=== PATIENT | female | born 1990 | race Two or more races ===

== ENCOUNTER 2020-03-22 01:40 | Observation (INO) | payer MEDICAID, OTHER ==
[~2020-03-22] VITALS: Ht 157.5 cm; Wt 95.3 kg
== END 2020-03-22 03:58 | disposition home or self-care (01) ==
LOC: LDRP 01:40
PROVIDERS: ADMIT Obstetrics & Gynecology; ATTEND Obstetrics & Gynecology
DX: O62.9 Abnormality of forces of labor, unspecified (principal); O99.891 Other specified diseases and conditions complicating pregnancy; M54.9 Dorsalgia, unspecified; Z3A.38 38 weeks gestation of pregnancy
CPT/HCPCS: 59025; 81002; 84112; G0378; Q0114

== ENCOUNTER 2020-04-01 10:10 | Observation (INO) | payer OTHER ==
[2020-04-01] MEDS ORDERED: PREN-96 PO (13:12)
== END 2020-04-01 12:50 | disposition home or self-care (01) ==
LOC: LDRP 10:10 → UNDOADMOB 10:10 → UNDODISOB 12:50
PROVIDERS: ADMIT Obstetrics & Gynecology; ATTEND Obstetrics & Gynecology
DX: O36.8130 Decreased fetal movements, third trimester, not applicable or unspecified (principal); O46.93 Antepartum hemorrhage, unspecified, third trimester; O62.9 Abnormality of forces of labor, unspecified; Z87.891 Personal history of nicotine dependence; Z3A.39 39 weeks gestation of pregnancy
CPT/HCPCS: 76818; G0378

== ENCOUNTER 2020-04-01 16:00 | Inpatient (IN) | payer OTHER ==
[~2020-04-01] VITALS: Ht 157.5 cm; Wt 97.5 kg
[~2020-04-01 16:00] MED LIST: PREN-96 PO
[2020-04-01] MEDS ORDERED: LACT. RINGERS/OXYTOCIN 20UNITS 1,000 ML IV ONE (16:30)
[2020-04-01] MEDS ORDERED: WITCH HAZEL-GLYCERIN PAD TOP PRN (16:30)
[2020-04-01] MEDS ORDERED: LACTATED RINGER'S 1,000 ML IV SCH (16:30)
[2020-04-01] MEDS ORDERED: DERMOPLAST 60ML BOTTLE TOP PRN (16:30)
[2020-04-01] MEDS ORDERED: PHISODERM TOP SOLN 240ML BTL TOP PRN (16:30)
[2020-04-01] MEDS ORDERED: PENICILLIN G POT 5MIL/D5 50ML 50 ML IV ONE (16:30)
[2020-04-01] MEDS ORDERED: LIDOCAINE 2%HCL (LOCAL ANESTH.) INJ 20ML MDV IJ ONE (16:30)
[2020-04-01] MEDS ORDERED: BUTORPHANOL TARTRATE 2 MG/1 ML VIAL IM PRN (17:00)
[2020-04-01 17:07] LABS: Eosinophils # (auto) 0 10 ^3/uL (0-0.8); Eosinophils % (auto) 0.3 % (0.0-7.0); Hemoglobin 12.4 g/dL (12.2-16.2); Lymphocytes # (auto) 1.3 10 ^3/uL (0.4-5.4); Neutrophils # (auto) 8.9 10 ^3/uL (1.6-8.6)
[2020-04-01 17:08] LABS: Basophils # (auto) 0 10 ^3/uL (0-0.2); Basophils % (auto) 0.4 % (0.0-2.0); Hematocrit 37.1 % (36.0-46.0); Lymphocytes % (auto) 11.9 % (10.0-50.0); Mean Corpuscular Hemoglobin 26.4 pg (28.0-32.0); Mean Corpuscular Hgb Conc. 33.5 g/dL (32.0-36.0); Mean Corpuscular Volume 78.9 fL (80.0-100.0); Monocytes # (auto) 0.7 10 ^3/uL (0-1.3); Monocytes % (auto) 6.2 % (0.0-12.0); Neutrophils % (auto) 81.2 % (37.0-80.0); Nucleated Red Blood Cells % 0.1 %; Platelet Count (auto) 161 10^3/uL (140-450); Red Blood Cells 4.71 10^6/uL (4.0-5.20); Red Cell Distribution Width 16.3 % (11.8-14.3)
[2020-04-01 17:23] LABS: Albumin 2.7 g/dL (3.4-5.0); Calcium 8.6 mg/dL (8.5-10.1); Potassium 3.5 mmol/L (3.5-5.1)
[2020-04-01 17:26] LABS: INR 0.92 (0.9-1.15); Partial Thromboplastin Time 26.1 sec (23.0-31.2)
[2020-04-01 17:27] LABS: BUN/Creatinine Ratio 12.7; Bilirubin, Total 0.5 mg/dL (0.2-1.0); Total Protein 6.7 g/dL (6.4-8.2); Uric Acid 4.3 mg/dL (2.6-6.0)
[2020-04-01] MEDS ORDERED: METHYLERGONOVINE MALEATE 0.2 MG/ML AMP IM ONE (18:35)
[2020-04-01] MEDS ORDERED: PENICILLIN G POTASSIUM 2,500,000 UNITS in D5W 5% 50 ML IV SCH (20:30)
[2020-04-01] MEDS ORDERED: miSOPROStol 100 mcg TAB ONE (21:12)
[2020-04-01] MEDS ORDERED: IBUPROFEN 600 MG TAB PO PRN (21:45)
[2020-04-01] MEDS ORDERED: ceFAZolin 1GM/50ML 50 ML IV SCH (22:00)
[2020-04-01] MEDS ORDERED: LACT. RINGERS/OXYTOCIN 20UNITS 1,000 ML IV SCH (23:00)
[2020-04-02] MEDS ORDERED: IBUPROFEN 600 MG TAB PO PRN (02:00)
[2020-04-02] MEDS ORDERED: ACETAMINOPHEN 325 MG TAB PO PRN (07:00)
--- NOTE | 2020-04-02 07:00 | NUR ---
[place] catheter discontinued per orders. pt tolerated well
[2020-04-02 07:20] VITALS: BP 111/63
--- NOTE | 2020-04-02 08:50 | NUR ---
Ambulation: Patient OOB with standby assistance by RN. Patient ambulated to bathroom with steady gait. Patient able to void 200 CC without difficulty. Pericare teaching provided with returned demonstration by patient. Clean gown provided and bed linen changed. Patient ambulated back to bed with steady gait and no distress noted.
[2020-04-02] MEDS: IBUPROFEN 800 MG TAB PO PRN ×2 (08:54→21:26)
[2020-04-02] MEDS: DOCUSATE SOD 100 MG CAP PO SCH ×2 (10:34→21:25)
[2020-04-02 11:00] VITALS: BP 128/72
[2020-04-02 14:55] LABS: Urine Bacteria FEW /hpf (None Seen); Urine Blood 3+ /uL (Negative); Urine Mucus FEW (None Seen); Urine Specific Gravity 1.012 (1.001-1.035); Urine WBC 43 /hpf (0 - 5)
[2020-04-02 15:03] LABS: Alcohol, Urine < 3.0 mg/dL (0-10); Amphetamine Screen, Urine NEGATIVE (NEGATIVE); Barbiturate Scree,Urine NEGATIVE (NEGATIVE); Benzodiazephine Screen, Urine NEGATIVE (NEGATIVE); Cannabinoid Screen, Urine NEGATIVE (NEGATIVE); Cocaine Screen, Urine NEGATIVE (NEGATIVE); Opiate Scree,Urine NEGATIVE (NEGATIVE); Phencyclidine Screen, Urine NEGATIVE (NEGATIVE)
[2020-04-02 15:20] VITALS: BP 133/71
[2020-04-02] MEDS: ACETAMINOPHEN 325 MG TAB PO PRN (17:41)
[2020-04-02 19:00] VITALS: BP 112/69
--- NOTE | 2020-04-02 22:24 | NUR ---
IV removal IV DC'd with clean technique, catheter fully intact. Pressure dressing applied to site. Patient tolerated well. NOTE:
[2020-04-02 23:00] VITALS: BP 98/55
[2020-04-03 03:00] VITALS: BP 118/61
[2020-04-03] MEDS: ACETAMINOPHEN 325 MG TAB PO PRN (04:57)
[2020-04-03 07:00] VITALS: BP 114/74
[2020-04-03] MEDS: DOCUSATE SOD 100 MG CAP PO SCH (09:45)
[2020-04-03] MEDS: IBUPROFEN 800 MG TAB PO PRN (09:46)
[2020-04-03 11:00] VITALS: BP 110/63
--- NOTE | 2020-04-03 14:30 | NUR ---
Discharge: Discharge instructions given as ordered. Pt encouraged to follow up with MILITARY PERSONNEL SPECIALIST as instructed. All questions and concerns addressed. Patient verbalized understanding. Medication reconciliation completed and copy given to patient. All required/requested vaccines given and copies of vaccinations given to patient. Patient encouraged to prepare to depart unit.
[2020-04-03 15:50] VITALS: BP 118/76
--- NOTE | 2020-04-03 15:50 | NUR ---
Discharge: Patient taken to vehicle via wheelchair with all personal belongings, accompanied by staff and family member. No distress noted at time of departure, no adverse changes in status since initial assessment.
[2020-04-04 05:06] LABS: RPR Non Reactive (Non Reactive)
[2020-04-04 06:06] LABS: Rubella Antibodies, IgG 3.92 index (Immune >0.99)
== END 2020-04-03 15:50 | disposition home or self-care (01) | DRG 807 ==
LOC: LDRP 16:00
PROVIDERS: ADMIT Obstetrics & Gynecology; ATTEND Obstetrics & Gynecology
PROC: 10D07Z6 Extraction of Products of Conception, Vacuum, Via Natural or Artificial Opening (ICD-10-PCS; principal; 2020-04-01)
PROC: 0KQM0ZZ Repair Perineum Muscle, Open Approach (ICD-10-PCS; 2020-04-01)
PROC: 0W8NXZZ Division of Female Perineum, External Approach (ICD-10-PCS; 2020-04-01)
DX: O66.0 Obstructed labor due to shoulder dystocia (principal); Z37.0 Single live birth; Z3A.39 39 weeks gestation of pregnancy; O70.1 Second degree perineal laceration during delivery; Z20.828 Contact with and (suspected) exposure to other viral communicable diseases
CPT/HCPCS: 36415; 59025; 59409; 80053; 80307; 81001; 81002; 84550; 85025; 85610; 85730; 86592; 86703; 86762; 86850; 86900; 86901; 87340; 87426; 94760; 96360; 96361; 96365; 96366; 96372; G0378; J0690; J2590; J7060

== ENCOUNTER 2022-02-12 11:48 | Emergency (ER) | payer MEDICAID, OTHER ==
[~2022-02-12] VITALS: Ht 157.5 cm; Wt 78.2 kg
[2022-02-12 13:30] LABS: Basophils # (auto) 0.1 10 ^3/uL (0-0.2); Basophils % (auto) 0.4 % (0.0-2.0); Eosinophils # (auto) 0.1 10 ^3/uL (0-0.8); Eosinophils % (auto) 0.8 % (0.0-7.0); Hematocrit 45.1 % (36.0-46.0); Lymphocytes # (auto) 2.7 10 ^3/uL (0.4-5.4); Lymphocytes % (auto) 22.8 % (10.0-50.0); Mean Corpuscular Hemoglobin 27.3 pg (28.0-32.0); Mean Corpuscular Hgb Conc. 33.2 g/dL (32.0-36.0); Mean Corpuscular Volume 82.1 fL (80.0-100.0); Monocytes # (auto) 0.8 10 ^3/uL (0-1.3); Monocytes % (auto) 6.5 % (0.0-12.0); Neutrophils # (auto) 8.1 10 ^3/uL (1.6-8.6); Neutrophils % (auto) 69.5 % (37.0-80.0); Red Blood Cells 5.49 10^6/uL (4.0-5.20); White Blood Cell 11.7 10^3/uL (4.4-10.8)
[2022-02-12 13:52] LABS: Urine Bacteria FEW /hpf (None Seen); Urine Blood Negative /uL (Negative); Urine Mucus FEW (None Seen); Urine Specific Gravity 1.012 (1.001-1.035); Urine WBC 2 /hpf (0 - 5)
[2022-02-12 13:59] LABS: Potassium 3.5 mmol/L (3.5-5.1)
[2022-02-12 14:05] LABS: Albumin 4.1 g/dL (3.4-5.0); BUN/Creatinine Ratio 14.9; Bilirubin, Total 0.7 mg/dL (0.2-1.0); Calcium 9.2 mg/dL (8.5-10.1); Total Protein 8.2 g/dL (6.4-8.2)
[2022-02-12] MEDS ORDERED: DONNATAL 5ml ORAL Elix (BELLADONNA ALK-PHENOBARB) PO ONE (14:15)
[2022-02-12] MEDS ORDERED: ALUM & MAG HYDROX-SIMETH LIQ(MAALOX) 30 ML PO ONE (14:15)
[2022-02-12] MEDS ORDERED: SODIUM CHLORIDE 0.9% 1,000 ML IV ONE (17:15)
[2022-02-12] MEDS ORDERED: LOPERAMIDE HCL 2 MG CAP/TAB PO ONE (17:15)
[2022-02-12] MEDS ORDERED: ONDA-144 PO (18:23)
[2022-02-12 19:39] VITALS: BP 122/79
== END 2022-02-12 19:42 | disposition home or self-care (01) ==
LOC: ER 11:48
DX: K29.70 Gastritis, unspecified, without bleeding (principal); Z90.89 Acquired absence of other organs; Z90.49 Acquired absence of other specified parts of digestive tract; Z91.018 Allergy to other foods
CPT/HCPCS: 36415; 74176; 76705; 80053; 81001; 81025; 83690; 85025; 96360; 96361; 99285; J7030

== ENCOUNTER 2024-12-12 21:43 | Emergency (ER) | payer MEDICAID ==
[~2024-12-12] VITALS: Ht 160 cm; Wt 63.8 kg
[~2024-12-12 21:43] MED LIST changes: +ONDA-144 PO
[2024-12-12 21:45] VITALS: BP 124/86; TEMP 98.3
[2024-12-12] MEDS ORDERED: ACET500T58 PO (23:27)
[2024-12-12] MEDS ORDERED: CEPH250C PO (23:27)
--- NOTE | 2024-12-12 23:28 | ED.PDOC ---
Musculoskeletal HPI Comments This patient is a pleasant 34-year-old female who arrives the ED today for evaluation of right 2nd toe laceration sustained status post dropping a knife on her toe while cooking approximately 1/2 hour prior to arrival. Patient states she was preparing food when the event happened. Patient arrives with a continued active bleed. Vital signs were stable on arrival. Chief Complaint: Lower Extremity Time Seen by MD: 22:01 Primary Care Provider: MARQUISE Romero Notes: Nurses Notes Allergies: Coded Allergies: Sondheimer (Verified Allergy, Intermediate, Hives, 03/22/20) Home Meds Active Scripts Ondansetron (Zofran) 4 Mg Tab, 4 MG PO Q6HP PRN for 10 Days, #15 TAB Prov:DI TONY MD 02/12/22 Reported Medications Vit W/ Ferrous Fumara ( One Daily) Daily Tab, 1 TAB PO DAILY, # 30 TAB 11 Refills 04/01/20 Information Source: Patient, Friend Mode of Arrival: Ambulatory Location: Right Extremity Location: Toe 2 Timing: Minutes Prehospital treatment: None Severity: Moderate Able to Move Extremity: Yes Bear Weight: Fully Pain: Mild Hand Dominance: Right Mechanism: Metal Cut Circumstances: Accident Onset of Symptoms: After Trauma Symptoms: Pain DVT Risk Factors: NONE Past Medical History PAST MEDICAL HISTORY: Denies Surgical History: Appendectomy, Cholecystectomy MINE ENGINEERING MANAGER History: 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 History Family History Family History (Other): Family history of gastric ulcers Social History Smoker: Non-Smoker Alcohol: Denies ETOH Use Drugs: Denies Drug Use Lives In: Home Constitutional: denies: chills, diaphoresis, fatigue, fever, malaise, sweats, weakness, others EENTM: denies: blurred vision, double vision, ear bleeding, ear discharge, ear drainage, ear pain, ear ringing, eye pain, eye redness, hearing loss, mouth pain, mouth swelling, nasal discharge, nose bleeding, nose congestion, nose pain, photophobia, tearing, throat pain, throat swelling, voice changes, others Respiratory: denies: cough, hemoptysis, orthopnea, SOB at rest, shortness of b reath, SOB with excertion, stridor, wheezing, others Cardiovascular: denies: chest pain, dizzy spells, diaphoresis, Dyspnea on exertion, edema, irregular heart beat, left arm pain, lightheadedness, palpitations, PND, syncope, others Gastrointestinal: denies: abdomen distended, abdominal pain, blood streaked bowels, constipated, diarrhea, dysphagia, difficulty swallowing, hematemesis, melena, nausea, poor appetite, poor fluid intake, rectal bleeding, rectal pain, vomiting, others Genitourinary: denies: abnormal vagina bleeding, burning, dyspareunia, dysuria, flank pain, frequency, hematuria, incontinence, pain, , vagina discharge, urgency, others Neurological: denies: dizziness, fainting, headache, left sided numbness, left sided weakness, numbness, paresthesia, pre-existing deficit, right sided numbness, right sided weakness, seizure, speech problems, tingling, tremors, weakness, others Musculoskeletal: denies: back pain, gout, joint pain, joint swelling, muscle pain, muscle stiffness, neck pain, others Integumetry: reports: laceration (5 mm laceration to right 2nd toe); denies: bruises, change in color, change in hair/nails, dryness, lesions, lumps, rash, wounds, others Allergic/Immunocompromised: denies: Difficulty Healing, Frequent Infections, Hives, Itching, others Hematologic/Lymphatic: denies: anemia, blood clots, easy bleeding, easy bruising, swollen glands, others Endocrine: denies: excessive hunger, excessive sweating, excessive thirst, excessive urination, flushing, intolerance to cold, intolerance to heat, unexplained weight gain, unexplained weight loss, others Psychiatric: denies: anxiety, bipolar disorder, depression, hopeless, panic disorder, schizophrenia, sleepless, suicidal, others Physical Exam General Appearance: Mild Distress (Moderate distress due to toe sensitivity and anxiety related to bleeding), Normal HEENT: Normal ENT Inspection, Pharynx Normal, TMs Normal Neck: Full Range of Motion, Non-Tender, Normal, Normal Inspection Respiratory: Chest Non-Tender, Lungs Clear, No Accessory Muscle Use, No Respiratory Distress, Normal Breath Sounds Cardiovascular: No Edema, No JVD, No Murmur, No Gallop, Normal Peripheral Pulses, Regular Rate/Rhythm Breast Exam: Deferred Gastrointestinal: No Organomegaly, Non Tender, No Pulsatile Mass, Normal Bowel Sounds, Soft Genitalia: Deferred Pelvic: Deferred Rectal: Deferred Extremities: Other (Patient has a laceration to the proximal aspect of the right 2nd toe with active bleed. Patient hit a vein during the incident.) Neurologic: Alert, No Motor Deficits, Normal Affect, Normal Mood, No Sensory Deficits Cerebellar Function: Normal Reflexes: Normal Skin: Dry, Normal Color, Warm Lymphatic: No Adenopathy Was a procedure done? Was a procedure done?: Yes Sedation Sedation?: No Other Procedure Notes 4 cc of 1% lidocaine was utilized for local anesthesia. Sterile field was placed. Copious irrigation performed. Bleeding was controlled on inferior and dorsal pressure while closure was achieved. 350 Ethilon sutures were placed in a simple interrupted fashion to close the wound. Clean dressing applied. Patient tolerated procedure well. Mild blood loss. Differential Diagnosis EXT Differential Diagnosis: Other (Toe laceration) X-Ray, Labs, Meds, VS Vital Signs Date Time Temp Pulse Resp B/P (MAP) Pulse Ox O2 Delivery O2 Flow Rate FiO2 12/12/24 21:45 98.3 84 18 124/86 (99) 98 98.3 X-Ray, Labs, Meds, VS Comment Patient tolerated procedure well. Tdap was updated. Advised patient utilize oral antibiotics for the next few days. Patient should return to ED or primary care provider in 10 days for re-evaluation and probable suture removal. Time of 1ST Reevaluation: 23:26 Reevaluation 1ST: Improved Consultation: PCP Patient Education/Counseling: Diagnosis, Treatment Family Education/Counseling: Diagnosis, Treatment Sepsis Recent Procedure: No On Antibiotic Therapy: No Respiratory Rate >20: No Heart Rate >90: No Temp<36 C (96.8 F) or >38.3 C: No SBP <90 or MAP <65 mmHG: No New Acute Mental Status Change: No Is the patient on CPAP, BIPAP,: No IV fluid given: No Departure 1 Departure Time of Disposition: 23:26 Impression: Primary Impression: Toe laceration Disposition: HOME / SELF CARE / HOMELESS Condition: Stable Additional Instructions: Advised patient utilize antibiotics as directed as well as pain medication as needed. Patient should return to ED or primary care provider in 10 days for re- evaluation and probable suture removal. e-Prescriptions Acetaminophen (Acetaminophen) 500 Mg Tab 500 MG PO Q4HP PRN, #20 TAB Prov: DI CARTER PAC 12/12/24 Cephalexin (KEFLEX CAPSULE) 250 Mg Cp 1 CAP PO QID for 5 Days, #20 CAP Prov: DI CARTER PAC 12/12/24 Discharged With: Self, Friend Critical Care Note Critical Care Time?: No Stability Stability form required: No Heart Score Heart Score: Heart Score Response (Comments) Value History N/A 0 EKG N/A 0 Age N/A 0 Risk Factors N/A 0 Troponin N/A 0 Total 0 DI CARTER PAC Dec 12, 2024 23:27
[2024-12-13] MEDS: TETANUS-DIPTH-ACEL PERTUSSIS 0.5ML SYR Tdap IM ONE (01:40)
[2024-12-13 01:41] VITALS: PULSE 70; RESP 12; O2SAT 100
== END 2024-12-13 01:40 | disposition home or self-care (01) ==
LOC: ER 21:43 → EDUNIT# 21:43 → EDBD 21:43 → ER 12-13 01:40
DX: S91.114A Laceration without foreign body of right lesser toe(s) without damage to nail, initial encounter (principal); Z90.49 Acquired absence of other specified parts of digestive tract; W26.0XXA Contact with knife, initial encounter; Y93.G3 Activity, cooking and baking; Y92.89 Other specified places as the place of occurrence of the external cause; Y99.8 Other external cause status
CPT/HCPCS: 12001; 90471; 90715